=== PATIENT | male | born 1980 | race Caucasian/White ===

== ENCOUNTER 2021-03-23 15:26 | Emergency (ER) | payer BC ==
[2021-03-23] MEDS ORDERED: Lidocaine 1% PF 5 ML VIAL ONE (16:01)
[2021-03-23] MEDS ORDERED: Boostrix 0.5 ML (Tdap) VIAL ONE (16:39)
== END 2021-03-23 16:41 | disposition home or self-care (01) ==
LOC: CSHERS 15:26
DX: S01.81XA Laceration without foreign body of other part of head, initial encounter (principal); Z23 Encounter for immunization; W22.8XXA Striking against or struck by other objects, initial encounter
CPT/HCPCS: 12011; 90471; 90715

== ENCOUNTER 2022-11-06 14:50 | Emergency (ER) | payer BC ==
[2022-11-06] MEDS ORDERED: Lidocaine 1% PF 5 ML VIAL ONE (16:10)
== END 2022-11-06 16:22 | disposition home or self-care (01) ==
LOC: CSHERS 14:50
DX: S01.511A Laceration without foreign body of lip, initial encounter (principal); W22.8XXA Striking against or struck by other objects, initial encounter
CPT/HCPCS: 40650